=== PATIENT | male | born 1980 | race Two or more races ===

== ENCOUNTER 2016-09-23 22:14 | Emergency (ER) | payer BC, OTHER ==
[~2016-09-23] VITALS: Ht 177.8 cm; Wt 115.7 kg
[2016-09-23 22:38] VITALS: BP 114/77
[2016-09-23 23:10] LABS: Basophils # (auto) 0.1 uL; Basophils % (auto) 0.7 % (0.0-2.0); Eosinophils # (auto) 0.2 uL; Eosinophils % (auto) 2.6 % (0.0-7.0); Hematocrit 47.4 % (41.0-53.0); Hemoglobin 15.7 g/dL (13.5-17.5); Lymphocytes # (auto) 3.4 uL; Lymphocytes % (auto) 35.7 % (10.0-50.0); Mean Corpuscular Hemoglobin 29.5 pg (28.0-32.0); Mean Corpuscular Hgb Conc. 33.1 g/dL (32.0-36.0); Mean Corpuscular Volume 89.2 fL (80.0-100.0); Mean Platelet Volume 8.6 fL (7.4-10.4); Monocytes # (auto) 0.6 uL; Monocytes % (auto) 6.1 % (0.0-12.0); Neutrophils # (auto) 5.3 uL; Neutrophils % (auto) 54.9 % (37.0-80.0); Platelet Count (auto) 212 10^3/uL (140-450); Red Cell Distribution Width 13.9 % (11.6-16.0); White Blood Cell 9.6 10^3/uL (4.4-10.8)
[2016-09-23 23:34] LABS: Albumin 3.6 g/dL (3.4-5.0); Anion Gap 6 (5-15); Blood Urea Nitrogen 13 mg/dL (7-18); Calcium 8.2 mg/dL (8.5-10.1); Carbon Dioxide 26 mmol/L (21-32); Chloride 104 mmol/L (98-107); Glucose 115 mg/dL (74-106); Potassium 3.9 mmol/L (3.5-5.1); Sodium 136 mmol/L (136-145)
[2016-09-23 23:37] LABS: Aspartate Aminotransferase 56 U/L (15-37); BUN/Creatinine Ratio 12.6; GFR African American 105 mL/min; GFR Non-African American 86 mL/min
[2016-09-23 23:53] LABS: Alkaline Phosphatase 68 U/L (45-117); Bilirubin, Total 0.5 mg/dL (0.2-1.0)
[2016-09-24 00:01] LABS: Total Protein 7.7 g/dL (6.4-8.2)
== END 2016-09-24 01:55 | disposition home or self-care (01) ==
LOC: ER 22:20
DX: R07.89 Other chest pain (principal); Z90.49 Acquired absence of other specified parts of digestive tract
CPT/HCPCS: 36415; 71010; 80053; 84484; 85025; 93005; 94761